=== PATIENT | female | born 1975 | race Two or more races ===

== ENCOUNTER 2023-11-23 20:52 | Emergency (ER) | payer MEDICAID, OTHER | END 2023-11-23 22:30 | disposition left against medical advice (07) | LOC: ER 20:52 | DX: R05.9 Cough, unspecified (principal); Z53.21 Procedure and treatment not carried out due to patient leaving prior to being seen by health care provider ==

== ENCOUNTER 2023-12-03 03:08 | Emergency (ER) | payer MEDICAID ==
[~2023-12-03] VITALS: Ht 167.6 cm; Wt 78.0 kg
[2023-12-03 03:28] VITALS: BP 150/85
[2023-12-03] MEDS ORDERED: AZITTAB PO (04:04)
[2023-12-03] MEDS ORDERED: PRED20TA2 PO (04:04)
[2023-12-03] MEDS ORDERED: ALBUAER3 IN (04:04)
[2023-12-03] MEDS ORDERED: BENZ200C64 PO (04:04)
[2023-12-03] MEDS ORDERED: GENT0.3S10 EACHEYE (04:04)
[2023-12-03] MEDS: guaiFENesin-CODEINE Liq 5 ML UD PO ONE (04:08)
[2023-12-03] MEDS: DexAMETHasone SOD PHOS 10MG/1ML VIAL INJ IM ONE (04:09)
[2023-12-03] MEDS: ALBUTEROL SULF 2.5 MG/0.5ML(0.5%) NEB SOLN NEB ONE (04:18)
[2023-12-03] MEDS: IPRATROPIUM BROM 0.5 MG/2.5ML INH SOL NEB ONE (04:18)
[2023-12-03 04:24] VITALS: O2SAT 98
[2023-12-03 04:42] VITALS: PULSE 80; RESP 18
== END 2023-12-03 04:42 | disposition home or self-care (01) ==
LOC: ER 03:08
DX: J20.9 Acute bronchitis, unspecified (principal); H10.9 Unspecified conjunctivitis
CPT/HCPCS: 94640; 96372; 99283; J1100; J7644